=== PATIENT | male | born 1960 | race Caucasian/White ===

== ENCOUNTER 2016-05-01 19:03 | Emergency (ER) | payer OTHER | END 2016-05-01 20:00 | disposition home or self-care (01) | LOC: ER 19:03 | DX: S61.250A Open bite of right index finger without damage to nail, initial encounter (principal); E11.9 Type 2 diabetes mellitus without complications; K21.9 Gastro-esophageal reflux disease without esophagitis; Z79.4 Long term (current) use of insulin; W54.0XXA Bitten by dog, initial encounter; Y92.69 Other specified industrial and construction area as the place of occurrence of the external cause; Y99.0 Civilian activity done for income or pay ==

== ENCOUNTER 2016-06-18 13:37 | Emergency (ER) | payer MEDICARE, OTHER | END 2016-06-18 14:31 | disposition home or self-care (01) | LOC: ER 13:37 | DX: S63.8X1A Sprain of other part of right wrist and hand, initial encounter (principal); E10.9 Type 1 diabetes mellitus without complications; K21.9 Gastro-esophageal reflux disease without esophagitis; E03.9 Hypothyroidism, unspecified; Z79.4 Long term (current) use of insulin; Z79.899 Other long term (current) drug therapy; X50.0XXA Overexertion from strenuous movement or load, initial encounter ==